=== PATIENT | male | born 1950 ===

== ENCOUNTER 2016-11-04 08:17 | Day surgery (SDC) | payer OTHER ==
--- NOTE | 2016-10-25 03:44 | HP ---
ADMISSION HISTORY AND PHYSICAL: DATE OF ADMISSION: 11/04/16 ATTENDING SURGEON: Monroe Lux MD CHIEF COMPLAINT: Left inguinal hernia. HISTORY OF PRESENT ILLNESS: This is a generally healthy 66-year-old male who has had apparent left inguinal hernia for the past 6 to 7 years. He states that there was no antecedent injury or straining and it seemed to appear spontaneously. It has however increased in size gradually over the years as well as level of discomfort. He generally does not need to reduce it manually nor has he had any symptoms to suggest incarceration or strangulation. He denies any GI or symptoms with it. He did undergo radical prostatectomy ( robotic) about a year ago. He was referred by Dr. Abreu for evaluation of the hernia. He was seen in the office on 08/06/[address] Lux at which time exam confirmed the presence of a moderately large, minimally tender left inguinal hernia. It was easily reducible. There was some laxity noted on the right side but no hernias specifically. Dr. Lux has discussed with him the options for repair including indications, risks, benefits and alternatives. He would like to proceed as scheduled with open repair left inguinal hernia with mesh. PAST MEDICAL HISTORY: Prostate cancer (status post robotic radical prostatectomy without evidence of recurrence). He did have a right lower extremity DVT that was somewhat of an incidental finding. He was treated initially with full anticoagulation which was then stopped after 2 subsequent ultrasounds revealed no DVT. He also has a past history of asthma but has not had any active problems in recent years and also history of urticaria. In addition, he has had lichen planus, psoriasis and vitiligo but no other systemic autoimmune diseases. PAST SURGICAL HISTORY: Robotic radical prostatectomy in 2016, wisdom teeth extraction remotely. MEDICATIONS: None. He takes no supplements. He does not require any bronchodilator therapy. DRUG ALLERGIES: PENICILLIN (rash), (he has had allergic rash to beer in the past). FAMILY HISTORY: Negative for anesthesia problems, bleeding or clotting disorder. SOCIAL HISTORY: The patient is . 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 He formerly smoked a pipe but quit in 1980. He drinks a few alcoholic drinks per week and denies other recreational drug use. REVIEW OF SYSTEMS: General: No recent constitutional symptoms. He did have some net weight loss around the time of his prostate surgery but it has since remained stable. Cardiovascular: No history of hypertension, chest pain, palpations or heart murmur. Respiratory: Past history but no recent active history of asthma. No recent cough or shortness of breath. GI: No problems reported. Colonoscopy done within the past 10 years which was a negative study and recommended 10 year followup and no interval symptomatology. : As above. No additions. Endocrine: No diabetes or thyroid dysfunction. PHYSICAL EXAMINATION GENERAL: Well-nourished, well-developed male in no acute distress. VITAL SIGNS: Height 69 inches, weight 175 pounds, temperature 97.4, blood pressure 120/82, pulse 80, respirations 16. HEENT: Pupils are equal and round, reactive. EOMs intact. No conjunctival pallor. Oropharynx: Teeth in good repair. No intraoral lesions. NECK: No lymphadenopathy or thyromegaly. No masses. LUNGS: Clear to auscultation. No wheezes. HEART: Regular rate and rhythm. No murmurs noted. ABDOMEN: Soft, nontender to palpation. No palpable masses or organomegaly. Left inguinal hernias as described by Dr. Lux's exam in the HPI. EXTREMITIES: No edema. GENITALIA: Testes normal by Dr. Lux's exam, not repeated today. RECTAL: Not done. BACK: No spinous process or CVA tenderness. NEUROLOGIC: Grossly intact. SKIN: Warm and dry. No suspicious rashes or lesions. IMPRESSION: Left inguinal hernia. PLAN: Open repair left inguinal hernia with mesh. YOSI DOMINIQUE CC: Dr. Jb Abreu; Dr. Ariel Clark * [id number]/[facility] #: [id number] [facility]
[~2016-11-04 08:17] MED LIST: Buffered Lidocaine 1% SYRIN* 3 ML/SYR SYRINGE INTRADERM ONE; Clindamycin 900 MG IVPREMIX(* 900 MG/50 ML SDV IV ONE
[2016-11-04] MEDS ORDERED: fentaNYL* 50 MCG/ML 2 ML VIAL (100 MCG VIAL) ONE (09:14)
[2016-11-04] MEDS ORDERED: Midazolam* 1 MG/ML 2 ML VIAL (2 MG) ONE (09:14)
[2016-11-04] MEDS ORDERED: Propofol* 10 MG/ML 20 ML BTL IV PUSH ONE (09:15)
[2016-11-04] MEDS ORDERED: Lidocaine 1% INJ* 10 MG/ML 30 ML SDV ONE (09:36)
[2016-11-04] MEDS ORDERED: Bupivacaine 0.5% W/EPI SDV* 30 ML VIAL ONE (09:36)
[2016-11-04] MEDS ORDERED: fentaNYL* 50 MCG/ML 2 ML VIAL (100 MCG VIAL) IV PRN (10:04)
[2016-11-04] MEDS ORDERED: Ondansetron INJ* 2 MG/ML VIAL IV PRN (10:04)
[2016-11-04 11:25] VITALS: BP 137/93
--- NOTE | 2016-11-05 00:31 | OP ---
CC: Dr. Abreu; Dr. Clark; Monroe Lux MD OPERATIVE REPORT: DATE OF OPERATION: 11/04/16 DATE OF : 54 SURGEON: Monroe Lux MD [employer] DRAFTSMAN: Zehra Melendez NP. ANESTHESIOLOGIST: Dr. Ann. ANESTHESIA: LMAC anesthesia. PREOPERATIVE DIAGNOSIS: Left inguinal hernia. POSTOPERATIVE DIAGNOSIS: Left inguinal hernia. OPERATIVE PROCEDURE: Open repair left inguinal hernia repair with mesh. COMPLICATIONS: No complications. DRAINS: No drains. PATHOLOGIC SPECIMEN: Hernia sac. COUNTS: Sponge and instrument counts are correct. ESTIMATED BLOOD LOSS: Less than 30 mL. DESCRIPTION OF PROCEDURE: The patient was supine on the operative table. After adequate intravenous sedation, compression stockings, Dereck Hugger warmer, and intravenous antibiotics, the left groin was clipped and prepped with antiseptic, draped in a sterile fashion. Local infiltrative anesthesia was administered and approximately 2.5 inch incision was created and carried down to the tissue layer. External oblique was opened in the direction of its fibers. Cord structures were encircled with a Al[place] drain. There was a direct space hernia, which was kind of chronic and fibrotic and adherent to the cord. It was dissected off the cord with great difficulty, and the transversalis fascia was entered and the preperitoneal plane developed and a Prolene Hernia System, PHSE patch was put into place. It was sutured up underneath the transversus abdominis with 2-0 Polysorb. The external leaf was sutured at the tubercle at the transversus abdominis and at the inguinal ligament. Tails were split, brought around the cord structures and tacked down laterally. External oblique was closed with 2-0 Polysorb, Daniella's with 3-0 Polysorb, skin with 4-0 Surgipro, followed by a sterile dressing. He tolerated the procedure well, was awakened, and was brought to Recovery in good condition. This was more difficult and time consuming than typical. [id number]/[facility] #: [id number] [facility]
== END 2016-11-04 12:04 | disposition home or self-care (01) ==
LOC: OR 08:17
PROVIDERS: ATTEND Surgery
DX: K40.90 Unilateral inguinal hernia, without obstruction or gangrene, not specified as recurrent (principal); J45.909 Unspecified asthma, uncomplicated; Z87.891 Personal history of nicotine dependence; Z86.718 Personal history of other venous thrombosis and embolism
CPT/HCPCS: 88302; C1781; J2001; J2250; J2704; J3010